=== PATIENT | female | born 1980 | race Caucasian/White ===

== ENCOUNTER 2022-11-15 07:38 | Emergency (ER) | payer OTHER, SELFPAY ==
--- NOTE | ~2022-11-15 | XR_ITS ---
EXAMINATION: RIGHT HAND, BILATERAL KNEE CLINICAL INFORMATION: Fall with right hand and bilateral knee pain COMPARISON: None available. TECHNIQUE: 4 views right hand, 2 views each knee FINDINGS: Right hand: There is a fracture at the base of the fifth metacarpal which most likely involves the carpometacarpal articular surface. The distal fracture fragment is displaced medially by about half a shaft width. No other hand fractures are seen. Bilateral knees: No significant bone, joint or soft tissue abnormality is seen. No joint effusions are present. No fractures. XR/XR hand RT min 3V IMPRESSION: 1. Fracture at the base of the right fifth metacarpal. 2. No knee fractures are seen.
--- NOTE | ~2022-11-15 | XR_ITS ---
EXAMINATION: RIGHT HAND, BILATERAL KNEE CLINICAL INFORMATION: Fall with right hand and bilateral knee pain COMPARISON: None available. TECHNIQUE: 4 views right hand, 2 views each knee FINDINGS: Right hand: There is a fracture at the base of the fifth metacarpal which most likely involves the carpometacarpal articular surface. The distal fracture fragment is displaced medially by about half a shaft width. No other hand fractures are seen. Bilateral knees: No significant bone, joint or soft tissue abnormality is seen. No joint effusions are present. No fractures. XR/XR knee LT 2V IMPRESSION: 1. Fracture at the base of the right fifth metacarpal. 2. No knee fractures are seen.
--- NOTE | ~2022-11-15 | XR_ITS ---
EXAMINATION: RIGHT HAND, BILATERAL KNEE CLINICAL INFORMATION: Fall with right hand and bilateral knee pain COMPARISON: None available. TECHNIQUE: 4 views right hand, 2 views each knee FINDINGS: Right hand: There is a fracture at the base of the fifth metacarpal which most likely involves the carpometacarpal articular surface. The distal fracture fragment is displaced medially by about half a shaft width. No other hand fractures are seen. Bilateral knees: No significant bone, joint or soft tissue abnormality is seen. No joint effusions are present. No fractures. XR/XR knee RT 2V IMPRESSION: 1. Fracture at the base of the right fifth metacarpal. 2. No knee fractures are seen.
[2022-11-15 08:09] VITALS: BP 123/66; PULSE 66; RESP 12; TEMP 36.5; O2SAT 96; BMI 32.8
--- NOTE | 2022-11-15 09:04 | ED_ITS ---
HPI - Fall General Chief Complaint: Fall Stated Complaint: pinky finger broken? 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 Patient states she was dropping her daughter off at daycare, try to run towards her however tripped and fell landing on knees/right hand, denies head trauma or LOC. initially felt lightheaded after incident however resolved with sitting still. Denies numbness, tingling, weakness. Tetanus up-to-date MD complaint: fall Related Data Allergies Allergy/AdvReac Type Severity Reaction Status Date / Time No Known Allergies Allergy Verified 11/15/22 08:08 Review of Systems Review of Systems: Constitutional: No Fever, No Chills ENT/Mouth: No Ear Pain, No Nasal Congestion, No sore throat, No Rhinorrhea, No Swallowing Difficulty Cardiovascular: No Chest Pain, No SOB Respiratory: No Cough Gastrointestinal: No Nausea, No Vomiting, No Diarrhea, No Constipation, No Abdominal pain Musculoskeletal: + joint pain, No Myalgias, + Joint Swelling Skin: +Skin Lesions, No rash Neuro: No Weakness, No Numbness, No Paresthesias Yes all other systems are reviewed and are negative Constitutional: Constitutional: Reports as per [facility] Past Medical History Attestation statement: The following information was validated with the patient. Source: old records reviewed Social History Social History Alcohol intake: never Physical Exam Vital Signs: Vital Signs: Last Vital Signs Temp 97.7 F 11/15/22 08:09 Pulse 63 11/15/22 12:03 Resp 18 11/15/22 12:03 BP 140/78 H 11/15/22 12:03 Pulse Ox 98 11/15/22 12:03 O2 Del Method Room Air 11/15/22 12:03 BMI result Body Mass Index 32.8 Const: General: cooperative, healthy appearing, no acute distress, alert and awake Orientation/consciousness: patient oriented x3 Limitations: no limitations HEENT: Head: Yes normal to inspection and Yes atraumatic Ears: hearing grossly normal bilaterally General nose exam: Normal external nose present Face and sinus: Yes normal facial exam Eyes: General: appearance normal, both eyes and all related structures EOM: EOMs intact bilaterally Neck: Neck: Yes normal visual inspection and Yes no meningeal signs Resp: Effort & Inspection: normal respiratory effort and no respiratory distress Cardio: Rate: regular rate Skin: Rashes: no rashes Neuro: General: patient oriented x3, tone normal, moves all extremities and no meningeal signs Extrem: Other: + bilateral superficial knee abrasions noted with mild tenderness > left. Left patella with mild swelling. Neurovascularly intact distally Right 4-5th metacarpals with noted swelling and diffuse tenderness, limited ROM secondary to pain. Finger to thumb opposition limited to 4/5th digits from pain. NV intact + superficial abrasion noted to palmar aspect 5th phalanx at MCP, bleeding controlled Course Course Course Narrative: XR knee RT 2V/XR knee LT 2V/XR hand RT min 3V IMPRESSION: 1.? Fracture at the base of the right fifth metacarpal. 2.? No knee fractures are seen. > hematoma block performed & fracture reduced. Case discussed with orthopedic SEN Kunz, patient has follow-up with Orthopedic Hand on Sunday or surgical consult. Ulnar gutter splint applied Results discussed with patient including worrisome signs and symptoms and strict return precautions, and when to return to the emergency department. They verbalized understanding and feel safe for discharge at this time. Medications Administered Discontinued Medications Generic Name Dose Route Start Last Admin Trade Name Freq PRN Reason Stop Dose Admin Lidocaine HCl 5 ml 11/15/22 10:21 11/15/22 11:00 Lidocaine Hcl 1 % Mpf 5 Ml Vial INFILTRATI 11/15/22 10:22 5 ml ONCE ONE Administration Procedures Orthopedic Fracture Reduction Fracture #1: Side: right Fracture Reduction Location: metacarpal Technique: direct manipulation and traction/counter-traction Post-reduction neuro exam: intact Post-reduction vascular exam: intact Splint Applied: Yes Patient Tolerated Procedure: well Orthopedic Splinting/Casting Injury #1: Side: right Upper Extremity Injury Location: finger Upper Extremity Immobilizer: ulnar gutter Medical Decision Making Medical Decision Making MDM Narrative: 42-year-old female with no significant past medical history presenting to the ED complaining of bilateral knee pain/abrasions, and right 4th & 5th finger pain s/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 On exam vital signs stable, NAD, nontoxic appearing, physical exam as noted above. Concern for abrasions vs fractures vs sprain. No evidence of cellulitis/infection, low concern for ACS/syncope or ICH Plan: Wound care, x-rays Please refer to course for remaining clinical decision making, interpretation of labs/imaging results, and discussions with consultants and/or family members. Differential Diagnosis Differential Diagnoses: The differential diagnosis associated with the presentation includes As above Admission/Observation Consideration of admission/observation: Escalation of care including admission/observation considered Consult Healthcare Provider Management of the patient was discussed with: Coil Winding Supervisor (Orthopedics) Lab Data MDM Lab Attestation statement: I reviewed the patient's lab results. Radiology Impression Discussion of test interpretation with radiology: I have reviewed the radiologist's reading. External Record Review External record reviewed: Inpatient record, Office record, Outpatient record, Prior outpatient labs, Prior outpatient radiology, Primary care record and Outside ED record Tests considered The following testing was considered but not selected: As above Prescription Management I considered prescription management with: Pain Medication Discharge Plan Discharge Clinical Impression: Closed fracture of fifth metacarpal bone Patient Disposition: Home, Self-Care Instructions: Hand Fracture (ED) Additional Instructions: You have a fracture of her pinky finger. Keep splint on, dry and clean If fingers become increasingly swollen, discolored or numb remove splint and return to the ED immediately Follow-up with information systems security specialist on Sunday as scheduled Ice and elevate Take Tylenol and Motrin for pain/swelling Referrals: [facility] [Provider Group] - 1 week Stand Alone Forms: Work/School Release Interventions: ED Discharge Assessment Last Done: 11/15/22 12:01 Discharge Date/Time: 11/15/22 12:04
[2022-11-15] MEDS: Lidocaine HCl 1 % MPF 5 ML VIAL INFILTRATI (11:00)
[2022-11-15 12:03] VITALS: BP 140/78; PULSE 63; RESP 18; O2SAT 98
== END 2022-11-15 12:04 | disposition home or self-care (01) ==
PROVIDERS: Emergency Provider Emergency Medicine
DX: S62.316A Displaced fracture of base of fifth metacarpal bone, right hand, initial encounter for closed fracture (principal); S80.212A Abrasion, left knee, initial encounter; S80.211A Abrasion, right knee, initial encounter; W01.0XXA Fall on same level from slipping, tripping and stumbling without subsequent striking against object, initial encounter; Y93.89 Activity, other specified; Y92.210 Daycare center as the place of occurrence of the external cause; Y99.9 Unspecified external cause status
CPT/HCPCS: 26742; 29125; 73130; 73560; 99284

== ENCOUNTER 2022-11-17 15:38 | Outpatient (REF) | payer OTHER, SELFPAY | END 2022-11-17 15:39 | disposition home or self-care (01) | LOC: HO.HOSX 15:38 | PROVIDERS: Visit Provider Orthopaedic Surgery | DX: Z13.89 Encounter for screening for other disorder (principal) ==

== ENCOUNTER 2022-11-21 11:06 | Outpatient (AMB) | payer OTHER, SELFPAY ==
--- NOTE | 2022-11-21 11:25 | MHC.OFFVIS ---
Intake Vital Signs 11/21/22 11:26 Height 5 ft 3 in Weight 185 lb BMI 32.8 Handedness Right Intake Visit Reasons: New pt/ right 4th and 5th /11/15/22 Intake Note: Andrey 42 yr old female who is right hand dominant, presents today for her right hand 4th and 5th finger injury. Patient states she was dropping her daughter off at daycare, try to run towards her however tripped and fell landing on knees/right hand. Seen in ED where xrays were taken and finger was splinted. Currently state she has pain 05/16. Denies numbness or tingling. Allergies No Known Allergies Allergy (Verified 11/21/22 11:40) HPI New pt/ right 4th and 5th /11/15/22 HPI Details Andrey is a 42 year old right hand dominant woman who presents with a right 5th metacarpal fracture, after a FOOSH, DOI: 11/15/22. She was seen in the ED same day, her fracture was reduced, and she was fitted for an ulnar gutter splint. She presents today saying her pain is mild in the ring and small fingers. 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 Review of Systems Const All systems reviewed & are unremarkable except as noted in HPI and below Physical Exam Vital Signs: BMI result Body Mass Index 32.8 Const General: cooperative, healthy appearing and no acute distress Orientation/consciousness: patient oriented x3 HEENT Head: Yes normocephalic and Yes atraumatic Eyes EOM: EOMs intact bilaterally Resp Effort & Inspection: normal respiratory effort and able to speak in complete sentences Cardio Jugular venous distension: no JVD Skin General skin exam: turgor normal Rashes: no rashes Neuro General: patient oriented x3 Extrem Other: Evaluation of Right Upper Extremity: The patient is alert, oriented, and in no acute distress Neuro: Median, Ulnar, Radial nerves motor and sensory intact and sensation is normal to the tips of all digits Vascular: Cap refill brisk ROM: No rotational mal-alignment I can palpate the length of the 5th metacarpal, and clinical alignment is good. Minimal swelling Superficial laceration at the ulnar aspect of the hand, and the small finger gaytan digital crease No open injuries near the fracture Also has some superficial scrapes along her forearms. Radiographs: 3 views of the right hand were taken, viewed, and compared to views from 11/15/22 today in clinic. They show a right 5th metacarpal base fracture, extra-articular, minimally displaced following reduction in ED. Overall satisfactory fracture alignment Psych Appearance: grossly normal Affect: normal affect Attitude: cooperative Assessment & Plan Assessment & Plan (1) Nondisplaced fracture of fifth metacarpal bone of right hand: Code(s): S62.306A - Unspecified fracture of fifth metacarpal bone, right hand, initial encounter for closed fracture Plan Assessment and plan: 1. Right 5th metacarpal base fracture, minimally displaced S/P KOJO, DOI: 11/15/22 Reduced in the ED I educated her about this condition I discussed operative and non-operative treatment options I recommend we manage this non-operatively, and she is in agreement She was placed in a short arm finger cast to wear for the next week I discussed activity modification, she is to lift nothing heavier than a cellphone for the next 4 weeks She is to work on gentle finger ROM exercises at home She will follow up in 1 week, with X-rays, 3V R hand, attn small finger, in plaster Scribed for Elise Gonzales MD by Dixon Kelly, medical clinic manager, on 11/21/22 at 11:50 AM, EST. Orders: Orders XR hand RT min 3V Today M79.641 - Pain in right hand Coding Level of Care Code New Pt Level 3 (90367) Diagnoses Nondisplaced fracture of fifth metacarpal bone of right hand S62.306A
[2022-11-21 11:26] VITALS: BMI 32.8
== END 2022-11-21 12:22 | disposition home or self-care (01) ==
PROVIDERS: Visit Provider Orthopaedic Surgery
DX: S62.316A Displaced fracture of base of fifth metacarpal bone, right hand, initial encounter for closed fracture (principal)
CPT/HCPCS: 26600; 99203

== ENCOUNTER 2022-11-21 11:22 | Outpatient (REF) | payer OTHER, SELFPAY ==
--- NOTE | ~2022-11-21 | XR_ITS ---
EXAMINATION: XR HAND, RIGHT CLINICAL INFORMATION: Pain. COMPARISON: Prior radiographs, most recently 11/21/2022. TECHNIQUE: PA, lateral, and oblique views of the right hand. FINDINGS: The bones and soft tissues are normal. No fracture. Alignment is anatomic. Joint spaces are maintained. No erosions or soft tissue calcifications. XR/XR hand RT min 3V IMPRESSION: Normal right hand.
== END 2022-11-21 11:23 | disposition home or self-care (01) ==
LOC: HO.HOSX 11:22
PROVIDERS: Visit Provider Orthopaedic Surgery
DX: S62.306A Unspecified fracture of fifth metacarpal bone, right hand, initial encounter for closed fracture (principal); W19.XXXA Unspecified fall, initial encounter; Y93.9 Activity, unspecified; Y92.9 Unspecified place or not applicable; Y99.9 Unspecified external cause status
CPT/HCPCS: 26600; 73130

== ENCOUNTER 2022-11-29 10:18 | Outpatient (AMB) | payer OTHER, SELFPAY ==
[2022-11-29 10:34] VITALS: BMI 31.9
--- NOTE | 2022-11-29 10:34 | A.OFFVIS_ITS ---
Intake Vital Signs 11/29/22 10:34 Height 5 ft 3 in Weight 180 lb BMI 31.9 Intake Visit Reasons: right 4th and 5th /11/15/22 Intake Note: Andrey 42 yr old female who is right hand dominant, presents today for a follow up of her fifth metacarpal bone of right hand, DOI 11/15/22. Cast off and xrays updated. Patient reports discomfort in the dorsal aspect of wrist. She continues to work on gentle ROM. Allergies No Known Allergies Allergy (Verified 11/29/22 10:38) HPI right 4th and 5th /11/15/22 HPI Details Andrey is a 42 year old right hand dominant woman who presents with a right 5th metacarpal fracture, after a FOOSH, DOI: 11/15/22. Her fracture was reduced in the emergency department. She was last seen by me on 11/21/2022. She was splinted and is following up with me for re-evaluation. She presents today saying she mostly has discomfort in her wrist. She has been working on gentle ROM exercises at home. She has a 2 month old baby at home, and currently her mother is helping care for the baby so she can avoid any lifting with her hand. 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 They show a right 5th metacarpal base fracture, extra-articular, minimally displaced following reduction in ED. Overall satisfactory fracture alignment with some evidence of interval bony healing Office Procedures Fracture Care Fracture Billing Code: Fracture Billing Code Assessment & Plan Assessment & Plan (1) Nondisplaced fracture of fifth metacarpal bone of right hand: Code(s): S62.306A - Unspecified fracture of fifth metacarpal bone, right hand, initial encounter for closed fracture Plan Assessment and plan: 1. Right 5th metacarpal base fracture, minimally displaced S/P KOJO, DOI: 11/15/22 Reduced in the ED I educated her about this condition I discussed operative and non-operative treatment options I recommend we manage this non-operatively, and she is in agreement She was placed in a velcro wrist splint, to wear like a cast except for show ering for the next few weeks I discussed activity modification, she is to lift nothing heavier than a cellphone for the next 4 weeks She is to work on gentle finger ROM exercises at home She will follow up in 3 weeks, with X-rays, 3V R hand, attn SF. At that appointment we may discontinue her splint except with activities prone to falling She can be seen by a PA Scribed for Elise Gonzales MD by Dixon Kelly, medical dosimetrist, on 11/29/22 at 11:05 AM, EST. Orders: Orders XR hand RT min 3V Today M79.641 - Pain in right hand Coding Level of Care Code Global (38542) Diagnoses Nondisplaced fracture of fifth metacarpal bone of right hand S62.306A CPT Codes Fracture Care - Fracture Billing Code: Fracture Billing Code ([id number])
== END 2022-11-29 11:07 | disposition home or self-care (01) ==
PROVIDERS: Visit Provider Orthopaedic Surgery
DX: S62.306A Unspecified fracture of fifth metacarpal bone, right hand, initial encounter for closed fracture (principal); W01.0XXA Fall on same level from slipping, tripping and stumbling without subsequent striking against object, initial encounter
CPT/HCPCS: 99024

== ENCOUNTER 2022-11-29 11:18 | Outpatient (REF) | payer OTHER, SELFPAY ==
--- NOTE | ~2022-11-29 | XR_ITS ---
EXAMINATION: XR HAND, RIGHT CLINICAL INFORMATION: Pain COMPARISON: Hand radiographs 11/21/2022 TECHNIQUE: PA, lateral, and oblique views of the right hand. FINDINGS: Again seen is a mildly displaced fracture of the base of the fifth metacarpal with persistent lucency of the fracture margins. No definite bridging bony callus formation. No new fracture or dislocation. Joint spaces are maintained. Soft tissues are unremarkable. XR/XR hand RT min 3V IMPRESSION: Again seen is a mildly displaced fracture of the base of the fifth metacarpal with persistent lucency of the fracture margins. No definite bridging bony callus formation.
== END 2022-11-29 11:19 | disposition home or self-care (01) ==
LOC: HO.HOSX 11:18
PROVIDERS: Visit Provider Orthopaedic Surgery
DX: S62.306A Unspecified fracture of fifth metacarpal bone, right hand, initial encounter for closed fracture (principal); X58.XXXA Exposure to other specified factors, initial encounter; Y93.9 Activity, unspecified; Y92.9 Unspecified place or not applicable; Y99.9 Unspecified external cause status
CPT/HCPCS: 73130

== ENCOUNTER 2022-12-21 06:38 | Outpatient (REF) | payer OTHER, SELFPAY ==
--- NOTE | ~2022-12-21 | XR_ITS ---
EXAMINATION: XR HAND, RIGHT CLINICAL INFORMATION: Pain. COMPARISON: Radiographs dated 11/29/2022. TECHNIQUE: PA, lateral, and oblique views of the right hand. FINDINGS: Bony alignment and mineralization are normal. There is a neutral ulnar variance. There is stable alignment of a mildly displaced oblique fracture of the base of the right fifth metacarpal. There is mild periosteal callus formation. No dislocation is seen. There is slight osteoarthritic change of the interphalangeal joint of the thumb, the fifth distal interphalangeal joint and the second metacarpophalangeal joint. No fracture or dislocation is seen. The proximal and distal carpal rows are intact. No focal soft tissue swelling, gas or foreign body is seen. XR/XR hand RT min 3V IMPRESSION: 1. There is stable alignment of an oblique, mildly displaced fracture of the right fifth metacarpal base. There is mild periosteal callus formation. 2. There is slight osteoarthritic change of the interphalangeal joint of the right thumb, the fifth distal interphalangeal joint and the second metacarpophalangeal joint.
== END 2022-12-21 06:39 | disposition home or self-care (01) ==
LOC: HO.HOSX 06:38
PROVIDERS: Visit Provider Physician Assistant
DX: S62.306D Unspecified fracture of fifth metacarpal bone, right hand, subsequent encounter for fracture with routine healing (principal)
CPT/HCPCS: 73130

== ENCOUNTER 2022-12-21 13:47 | Outpatient (AMB) | payer OTHER, SELFPAY ==
--- NOTE | 2022-12-21 13:53 | A.OFFVIS_ITS ---
Intake Vital Signs 12/21/22 13:56 Height 5 ft 3 in Weight 180 lb BMI 31.9 Intake Visit Reasons: ov-Fx of 5th MC bone of right hand /11/15/22 Intake Note: Andrey 42 yr old female who is right hand dominant, presents today for a follow up of her fifth metacarpal bone of right hand, DOI 11/15/22.?States she is wearing her brace when needed and is taking it off to work on her ROM. Denies numbness or tingling. Allergies No Known Allergies Allergy (Verified 12/21/22 13:56) HPI ov-Fx of 5th MC bone of right hand /11/15/22 HPI Details 42-year-old right hand dominant female who returns to the office today for a follow-up of right 5th metacarpal fracture, 11/15/22. She states she has occasional pain in her wrist but denies any other pain, numbness or tingling. She continues to work with physical therapy and wears her brace as needed. 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 No swelling or ecchymosis. There is very mild tenderness at the base of 5th metacarpal. She is able to make a full fist and extend all digits. NVI. Results Reviewed Results Reviewed: Xrays were obtained in the office today and personally reviewed by me of the right hand show stable alignment of the fracture with interval healing. Assessment & Plan Assessment & Plan (1) Nondisplaced fracture of fifth metacarpal bone of right hand: Code(s): S62.306A - Unspecified fracture of fifth metacarpal bone, right hand, initial encounter for closed fracture Plan She will discontinue the use of brace with all activities except for anything impact related. 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 She will see us back in [address] Gonzales and new x-rays, sooner if needed. Orders: Orders XR hand RT min 3V Today M79.641 - Pain in right hand Patient Instructions: Scribed for Whit Epperson PA-C, by Wili Hightower director biomedical engineering, on 12/21/2022 at 2:00 PM EST. I, Whit Epperson PA-C, have personally reviewed and agree with the information entered by the scribe. Coding Level of Care Code Global (26293) Diagnoses Nondisplaced fracture of fifth metacarpal bone of right hand S62.306A
[2022-12-21 13:56] VITALS: BMI 31.9
== END 2022-12-21 14:49 | disposition home or self-care (01) ==
PROVIDERS: Visit Provider Physician Assistant
DX: S62.306A Unspecified fracture of fifth metacarpal bone, right hand, initial encounter for closed fracture (principal)
CPT/HCPCS: 99024

== ENCOUNTER 2023-01-15 06:56 | Outpatient (REF) | payer OTHER, SELFPAY ==
--- NOTE | ~2023-01-15 | XR_ITS ---
EXAMINATION: XR HAND, RIGHT CLINICAL INFORMATION: Pain COMPARISON: X-ray 12/21/2022 TECHNIQUE: PA, lateral, and oblique views of the right hand. FINDINGS: Normal bone mineralization. Bony alignment is anatomic. Stable alignment of a mildly displaced oblique fracture of the base of the fifth metatarsal. There is decreased conspicuity of the fracture plane, with increasing callous formation. Minimal arthritis in the first CMC, first IP, fifth DIP joint. No erosions. No abnormal soft tissue calcification. XR/XR hand RT min 3V IMPRESSION: Stable alignment of the fracture of the base of the fifth metacarpal, with progression of healing.
== END 2023-01-15 06:57 | disposition home or self-care (01) ==
LOC: HO.HOSX 06:56
PROVIDERS: Visit Provider Physician Assistant
DX: S62.306D Unspecified fracture of fifth metacarpal bone, right hand, subsequent encounter for fracture with routine healing (principal)
CPT/HCPCS: 73130

== ENCOUNTER 2023-01-15 15:16 | Outpatient (AMB) | payer OTHER, SELFPAY ==
--- NOTE | 2023-01-15 15:28 | MHC.OFFVIS ---
Intake Vital Signs 01/15/23 15:39 Height 5 ft 3 in Weight 180 lb BMI 31.9 Intake Visit Reasons: OV- Fx of 5th MC bone of right hand 11/15/22 Intake Note: Andrey a 42 year old female who presents today for a follow up if right hand 5th MC fx, DOI 11/15/22. Patient reports that she has little discomfort a week ago but denies pain or discomfort today. States with typing she feels tense in her wrist. Continues to wear brace as instructed. Allergies No Known Allergies Allergy (Verified 01/15/23 15:40) HPI OV- Fx of 5th MC bone of right hand 11/15/22 HPI Details 42 year old female who presents today for a follow up if right hand 5th MC fx, DOI 11/15/22. She states she has been doing ok, denies pain. She is able to use the hand without discomfort. 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 No swelling or ecchymosis. No tenderness at the base of 5th metacarpal. She is able to make a full fist and extend all digits. NVI. Results Reviewed Results Reviewed: Xrays were obtained in the office today and personally reviewed by me of the right hand show stable alignment of the fracture with interval healing. Assessment & Plan Assessment & Plan (1) Unspecified fracture of fifth metacarpal bone, right hand, subsequent encounter for fracture with routine healing: Code(s): S62.306D - Unspecified fracture of fifth metacarpal bone, right hand, subsequent encounter for fracture with routine healing Orders: Orders XR hand RT min 3V Today M79.641 - Pain in right hand Coding Level of Care Code Global (06782) Diagnoses Unspecified fracture of fifth metacarpal bone, right hand, subsequent encounter for fracture with routine healing S62.306D
[2023-01-15 15:39] VITALS: BMI 31.9
== END 2023-01-15 19:19 | disposition home or self-care (01) ==
PROVIDERS: Visit Provider Physician Assistant
DX: S62.306D Unspecified fracture of fifth metacarpal bone, right hand, subsequent encounter for fracture with routine healing (principal)
CPT/HCPCS: 99024